=== PATIENT | female | born 1985 | race African-American/Black ===

== ENCOUNTER 2016-11-06 09:10 | Emergency (ER) | payer OTHER ==
[2016-11-06 09:15] VITALS: PULSE 83; RESP 18
--- NOTE | 2016-11-06 09:35 | ED ---
Female Urogenital HPI - General Chief complaint: OB/Uterine Contractions Stated complaint: and bleeding Time Seen by Provider: 11/06/16 09:17 Source: patient, RN notes reviewed Mode of arrival: ambulatory Limitations: no limitations - History of Present Illness Initial comments: Patient is a 31-year-old female presents emergency room for vaginal bleeding. Patient states she is about 8 weeks . Patient's last menstrual period was 09/07/16. Patient states she found out at her doctor's appointment that she was . Patient is . Patient states she woke up this morning with blood in her underwear. Patient states it was a light amount of bright red blood and has gone through one pad so far. Patient states it felt like she was just beginning her period. Patient states she had a small clot that she passed. Patient denies any significant pain or cramping. Patient denies nausea or vomiting. Patient denies fevers or chills. Patient denies headache or dizziness. Patient denies chest pain or shortness of breath. Patient denies pain or burning during urination. Patient states she has a history of Chlamydia and Trichomonas when she was younger that was treated. Patient states she has not had an ultrasound yet for this . Patient states she just saw her PROPAGATOR on Tuesday. Last Menstrual Period: 09/06/16 - Related Data Home Medications Medication Instructions Recorded Confirmed Methyldopa [Aldomet] 250 mg PO BID 02/05/16 02/05/16 Ayt-Tmbx-Uyjkh Acid 1 cap PO DAILY 02/05/16 02/05/16 [-U Capsule] Previous Rx's Medication Instructions Recorded Miconazole 2% Vaginal Cream 1 applicator VAGINAL HS #7 02/05/16 [Monistat 7] cream.appl Allergies Allergy/AdvReac Type Severity Reaction Status Date / Time Latex, Natural Rubber Allergy Itching Verified 02/05/16 09:15 sulfamethoxazole Allergy Racing Verified 02/05/16 09:15 [From Bactrim] Heart/Headache/Sweating trimethoprim [From Bactrim] Allergy Racing Verified 02/05/16 09:15 Heart/Headache/Sweating nitrofurantoin AdvReac Itching Verified 02/05/16 09:15 [From Macrobid] nitrofurantoin AdvReac Itching Verified 02/05/16 09:15 macrocrystalline [From Macrobid] Review of Systems ROS Statement: Those systems with pertinent positive or pertinent negative responses have been documented in the HPI. ROS Other: All systems not noted in ROS Statement are negative. Past Medical History Past Medical History: Hypertension Additional Past Medical History / Comment(s): Obesity History of Any Multi-Drug Resistant Organisms: None Reported Additional Past Surgical History / Comment(s): D&C Past Anesthesia/Blood Transfusion Reactions: No Reported Reaction Past Psychological History: No Psychological Hx Reported Smoking Status: Never smoker Past Alcohol Use History: Occasional Past Drug Use History: None Reported General Exam - General Exam Comments Initial Comments: Sitting on exam bed, no acute distress. Limitations: no limitations General appearance: alert, in no apparent distress Head exam: Present: atraumatic, normocephalic, normal inspection Eye exam: Present: normal appearance ENT exam: Present: normal exam Neck exam: Present: normal inspection Respiratory exam: Present: normal lung sounds bilaterally. Absent: respiratory distress Cardiovascular Exam: Present: regular rate, normal rhythm, normal heart sounds GI/Abdominal exam: Present: soft, normal bowel sounds. Absent: distended, tenderness, guarding, rebound, rigid External exam: Present: normal external exam Speculum exam: Present: vaginal bleeding By manual exam: Present: normal by manual exam Extremities exam: Present: normal inspection Back exam: Present: normal inspection Neurological exam: Present: alert, oriented X3, CN II-XII intact, normal gait Psychiatric exam: Present: normal affect, normal mood Skin exam: Present: warm, dry, intact, normal color. Absent: rash Course Vital Signs 11/06/16 11/06/16 09:12 10:39 Temperature 97.8 F 98.4 F Pulse Rate 83 83 Respiratory 18 18 Rate Blood Pressure 145/102 148/107 O2 Sat by Pulse 97 99 Oximetry Medical Decision Making - Medical Decision Making Patient is a 31-year-old female presents emergency room for evaluation of vaginal bleeding. Patient is . ultrasound: Single live intrauterine gestation is confirmed, meaning crown-rump length is 2.6 cm corresponding to a 9 week 3 day old fetus. Small to moderate-sized subchorionic hemorrhage is felt present. Patient's blood type is O positive. Advised patient to follow- up with PROPAGATOR on Tuesday. Patient states she understands everything that was discussed with her. Return parameters discussed. Case discussed Dr. Hannah. - Lab Data Lab Results 11/06/16 11/06/16 11/06/16 Range/Units 09:37 09:44 09:44 Urine Color Yellow Urine Appearance Cloudy H (Clear) Urine pH 7.0 (5.0-8.0) Ur Specific [place] 1.010 (1.001-1.035) Urine Protein Negative (Negative) Urine Glucose (UA) Negative (Negative) Urine Ketones Negative (Negative) Urine Blood Moderate H (Negative) Urine Nitrite Negative (Negative) Urine Bilirubin Negative (Negative) Urine Urobilinogen <2.0 (<2.0) mg/dL Ur Leukocyte Esterase Negative (Negative) Urine RBC 1 (0-5) /hpf Urine WBC 3 (0-5) /hpf Ur Squamous Epith Cells 4 (0-4) /hpf Urine Bacteria Few H (None) /hpf Urine Mucus Rare H (None) /hpf Urine HCG, Qual Detected (Not Detectd) Blood Type O Positive Blood Type Recheck No - Radiology Data Radiology results: report reviewed, image reviewed Disposition Clinical Impression: Threatened miscarriage Disposition: HOME SELF-CARE Condition: Good Instructions: Threatened Miscarriage (ED) Additional Instructions: Refrain from sexual intercourse or heavy lifting for the next 7-10 days. Take Tylenol as needed for pain. Please follow-up with PROPAGATOR on Tuesday. If any new symptom arises or symptoms worsen, return to ER as soon as possible. Referrals: James Pastor DO [Primary Care Provider] - 1-2 days Time of Disposition: 10:23
[2016-11-06 09:55] LABS: Appearance,Urine Cloudy (Clear); Bacteria,Urine Few /hpf; Bilirubin,Urine Negative (Negative); Glucose,Urine (UA) Negative (Negative); Ketones,Urine Negative (Negative); Leukocyte Esterase,Urine Negative (Negative); Mucus,Urine Rare /hpf; Nitrite,Urine Negative (Negative); Particle Count 5677; Protein,Urine Negative (Negative); RBC,Urine 1 /hpf (0-5); Squamous Epithelial Cell,Urine 4 /hpf (0-4); UA Billing (MACRO vs. MICRO) MICRO; Urobilinogen,Urine <2.0 mg/dL (<2.0); WBC,Urine 3 /hpf (0-5)
--- NOTE | 2016-11-06 10:17 | US ---
EXAMINATION TYPE: US OB <= 14 wk fetus DATE OF EXAM: 11/06/2016 10:05 AM COMPARISON: NONE CLINICAL HISTORY: Pain. Bleeding x 1 day with no pain. Positive beta-hCG test. EXAM PERFORMED: OBTA EXAM MEASUREMENTS: GESTATIONAL AGE / DATING Physician Established: not established Dates by LMP: (8 weeks/5 days) EDC: 06/13/2017 Dates by First Scan: PILOT Dates by Current Scan for: (9 weeks/3 days) EDC: 06/08/2017 MATERNAL ANATOMY Uterus: 11.2 x 9.1 x 7.5 Right Ovary: 2.7 x 2.2 x 1.8 Left Ovary: 2.8 x 4.0 x 3.1 Post CDS / Adnexa: wnl Presence of free fluid: no Presence of corpus luteal cyst: yes, left = 2.7cm Presence of subchorionic bleed: 3.8cm complex fluid collection may represent subchorionic bleed GESTATION / SURVEY CRL: 2.6cm (9 weeks/3 days) MSD: wnl Yolk Sac (normal less than 6mm): 0.4cm Heart Rate: 175 bpm Rhythm: Normal IUP: Viable IUP Date of LMP: 09/06/2016 Beta HcG (if available): not available Single live intrauterine gestation is confirmed as gestational sac, yolk sac, and pole are iden tified. Along inferior aspect there is curvilinear fluid collection measuring 3.8 cm on long axis fel t to reflect small to moderate-sized subchorionic hemorrhage. No free fluid is seen in pelvic cul-de- sac. Both ovaries are seen. Within left ovary there is 2.7 cm peripheral hypoechoic lesion could reflect c orpus luteal cyst. IMPRESSION: Single live intrauterine gestation is confirmed, mean crown-rump length is 2.6 cm corresponding to a 9 week 3 day old fetus. Small to moderate-sized subchorionic hemorrhage is felt present. Consider ult rasound follow-up.
[2016-11-06 10:40] VITALS: BP 148/107; TEMP 98.4
== END 2016-11-06 10:40 | disposition home or self-care (01) ==
LOC: EC 09:10
DX: O20.0 Threatened abortion (principal); Z3A.09 9 weeks gestation of pregnancy; O10.011 Pre-existing essential hypertension complicating pregnancy, first trimester; I10 Essential (primary) hypertension
CPT/HCPCS: 36415; 76801; 81001; 81025; 84702; 86900; 86901; 99284

== ENCOUNTER → 2016-11-08 | Outpatient (CLI) | payer OTHER | END | disposition home or self-care (01) | LOC: LABWHC1 16:35 | PROVIDERS: ATTEND Physician Assistant | DX: O20.0 Threatened abortion (principal) | CPT/HCPCS: 36415; 84702 ==

== ENCOUNTER → 2016-11-24 | Outpatient (CLI) | payer OTHER ==
--- NOTE | 2016-11-24 14:18 | US ---
EXAMINATION TYPE: US OB <=14 wks transvag DATE OF EXAM: 11/24/2016 1:50 PM COMPARISON: 11/06/2016 pelvic ultrasound CLINICAL HISTORY: O16.1 HTN affecting . Patient reports spotting EXAM PERFORMED: Transvaginal (TV) and Transabdominal (TA) EXAM MEASUREMENTS: GESTATIONAL AGE / DATING Physician Established: unknown Dates by LMP: (11 weeks/2 days) EDC: 06/13/2017 Dates by First Scan: (12 weeks/0 days) EDC: 06/08/2017 Dates by Current Scan for: (11 weeks/6 days) EDC: 06/09/2017 MATERNAL ANATOMY Uterus: 13.2 x 8.0 x 11.7 cm Right Ovary: 4.1 x 2.7 x 5.2 cm Left Ovary: not visualized Post CDS / Adnexa: Presence of free fluid: no Presence of corpus luteal cyst: no Presence of subchorionic bleed: small (1.5 x 0.9 cm) inferior bleed GESTATION / SURVEY CRL: 5.2 cm (11 weeks/6 days) Heart Rate: 171 bpm Rhythm: Normal IUP: Viable IUP Date of LMP: 09/06/2016 Single, viable IUP of 11 weeks 6 days with an EDC of 06/09/2017. Small inferior subchrionic bleed Single live intrauterine gestation is redemonstrated as gestational sac and pole are identified currently. No yolk sac is seen. Small inferior subchorionic hemorrhage is redemonstrated though dimi nished in size from prior. No free fluid is seen in pelvic cul-de-sac. Right ovary is seen. Left ovary is not clearly identified. No suspicious extraovarian adnexal masses are present. IMPRESSION: Single live intrauterine gestation is redemonstrated, mean crown-rump length is 5.2 cm corresponding to 11 weeks 6 day old fetus. Appropriate growth progression noted. Interval improvement in subchorion ic hemorrhage.
== END | disposition home or self-care (01) ==
LOC: RADUSWWP 13:04
PROVIDERS: ATTEND Obstetrics & Gynecology
DX: O20.9 Hemorrhage in early pregnancy, unspecified (principal); O16.1 Unspecified maternal hypertension, first trimester; Z3A.11 11 weeks gestation of pregnancy
CPT/HCPCS: 76801; 76817

== ENCOUNTER → 2017-03-24 | Outpatient (CLI) | payer OTHER ==
--- NOTE | 2017-03-24 16:59 | US ---
EXAMINATION TYPE: US OB >= 14 wk fetus DATE OF EXAM: 03/24/2017 COMPARISON: US CLINICAL HISTORY: O16.2 Maternal hypertension, second trimester HTN, Growth only TECHNIQUE: Transabdominal (TA) GESTATIONAL AGE / DATING Physician Established: (28 weeks/3 days) EDC: 06/13/2017 Dates by LMP: (28weeks/3 days) EDC: 06/13/2017 Dates by First Scan: (29weeks/1 days) EDC: 06/08/2017 Dates by Current Scan: (28weeks/1 days) EDC: 06/15/2017 SURVEY IUP: Single PLACENTA: Anterior PREVIA: No Previa SHIMON: 13.4 Normal CERVICAL LENGTH (transabdominal: norm > 3.0cm): 3.6 cm BIOMETRY PRESENTATION: Breech BPD: 7.3 cm 29 weeks / 1 days HC: 27.0 cm 29 weeks / 3 days AC: 23.4 cm 27 weeks / 5 days FL: 5.3 cm 28 weeks / 0 days ESTIMATED WEIGHT IN GRAMS: 1170 grams ESTIMATED WEIGHT IN LBS/OZ: 2 lbs. 9 oz. WEIGHT PERCENTAGE BASED ON ESTABLISHED DATES: 25% HC/AC: 1.16 Normal FL/AC: 23 Normal HEART RATE: 137 bpm RHYTHM: Normal Single, viable IUP, Growth parameters in 25th percentile IMPRESSION: There is satisfactory growth compared to 11/06/2016. I see no complicating process.
== END ==
LOC: RADUSWWP 16:18
PROVIDERS: ATTEND Obstetrics & Gynecology
DX: O16.2 Unspecified maternal hypertension, second trimester (principal); Z3A.29 29 weeks gestation of pregnancy
CPT/HCPCS: 76805

== ENCOUNTER → 2017-09-28 | Outpatient (CLI) | payer OTHER ==
[2017-09-28 18:34] LABS: Basophils % (A) 0 %; Eosinophils # (A) 0.1 k/uL (0-0.7); Eosinophils % (A) 1 %; HCT 36.8 % (34.0-46.0); HGB 12.1 gm/dL (11.4-16.0); Lymphocytes # (A) 2.3 k/uL (1.0-4.8); Lymphocytes % (A) 33 %; MCHC 32.8 g/dL (31.0-37.0); MCV 85.1 fL (80.0-100.0); Mean Platelet Volume 7.3; Monocytes # (A) 0.4 k/uL (0-1.0); Monocytes % (A) 6 %; Neutrophils # (A) 3.9 k/uL (1.3-7.7); Neutrophils % (A) 58 %; Platelet Count 289 k/uL (150-450); RBC 4.32 m/uL (3.80-5.40); RDW 14.7 % (11.5-15.5); WBC 6.8 k/uL (3.8-10.6)
== END | disposition home or self-care (01) ==
LOC: LABWHC1 16:50
PROVIDERS: ATTEND Obstetrics & Gynecology
DX: Z01.812 Encounter for preprocedural laboratory examination (principal)
CPT/HCPCS: 36415; 85025

== ENCOUNTER 2017-10-03 06:07 | Day surgery (SDC) | payer OTHER ==
[2017-09-28 11:49] VITALS: BMI 45.6
--- NOTE | 2017-09-28 18:17 | P.HPOB ---
History of Present Illness H&P Date: 09/28/17 Chief Complaint: Family planning Patient is a 32-year-old female who has completed her family planning and desires permanent sterilization. Risks/benefits/alternatives to this procedure were discussed with the patient in detail and all questions were answered for her prior to proceeding to the operative room. It is noted that she has been taking Depo-Provera and has failed Mirena and On. She is therefore most interested in permanent sterilization and is scheduled for a laparoscopic tubal occlusion with Filshie clips. She is aware she is high risk for cup location due to her high BMI and the risks do include but are not limited to damage to bladder, bowel, vascular injuries, nerve damage , bleeding, infection, even potentially . There is a coated failure rate of approximately 1%. On physical exam this is a morbidly obese female whose HEENT is unremarkable. Her heart is regular, lungs are clear, extremities are without pain. Osteopathic exams unremarkable. Pelvic exam is otherwise unremarkable. Assessment family planning. Plan left scopic tubal occlusion with Filshie clips Past Medical History Past Medical History: GERD/Reflux, Hypertension Additional Past Medical History / Comment(s): Obesity History of Any Multi-Drug Resistant Organisms: None Reported Additional Past Surgical History / Comment(s): D&C Past Anesthesia/Blood Transfusion Reactions: No Reported Reaction Past Psychological History: Anxiety Smoking Status: Former smoker Past Alcohol Use History: Occasional Additional Past Alcohol Use History / Comment(s): Smoked for 2 yrs, quit in 2006. Past Drug Use History: None Reported - Past Family History Mother Family Medical History: No Reported History Medications and Allergies Home Medications Medication Instructions Recorded Confirmed Type Methyldopa [Aldomet] 250 mg PO BID 02/05/16 09/28/17 History Zgl-Jscd-Otjpn Acid 1 cap PO DAILY 02/05/16 09/28/17 History [-U Capsule] Fluticasone Propionate [Flonase 2 spray EA NOSTRIL DAILY PRN 09/28/17 09/28/17 History Allergy Relief] Allergies Allergy/AdvReac Type Severity Reaction Status Date / Time Latex, Natural Rubber Allergy Itching Verified 09/28/17 11:34 sulfamethoxazole Allergy Racing Verified 09/28/17 11:34 [From Bactrim] Heart/Headache/Sweating trimethoprim [From Bactrim] Allergy Racing Verified 09/28/17 11:34 Heart/Headache/Sweating nitrofurantoin AdvReac Itching Verified 09/28/17 11:34 [From Macrobid] nitrofurantoin AdvReac Itching Verified 09/28/17 11:34 macrocrystalline [From Macrobid] Exam Osteopathic Statement: *. No significant issues noted on an osteopathic structural exam other than those noted in the History and Physical/Consult. - Vital Signs Vital signs: Intake and Output 09/28/17 09/28/17 09/28/17 06:59 14:59 22:59 Other: Weight 120.656 kg
[~2017-10-03 06:07] MED LIST: DEXAMETHASONE SOD PHOSPHATE 10 MG/ML 1 ML VIAL IV ONE; HYDROmorphone 0.5 MG/0.5 ML SYRINGE IVP PRN; MORPHINE SULFATE 4 MG/ML SYRINGE IV PRN; ONDANSETRON 4 MG/2 ML VIAL IVP ONE; ONDANSETRON 4 MG/2 ML VIAL IVP PRN; Pre Op ABX Message 1 EACH MISC MISCELLANE ONE
[2017-10-03] MEDS: LACTATED RINGERS 1,000 ML IV SCH ×2 (06:47→07:49)
[2017-10-03] MEDS ORDERED: BUPIVACAINE (PF) 0.25% 30 ML VIAL SQ ONE ×2 (07:31→08:15)
[2017-10-03] MEDS ORDERED: KETOROLAC 30 MG/ML 1 ML VIAL ONE (07:50)
[2017-10-03] MEDS ORDERED: fentaNYL (PF) 50 MCG/ML 2 ML AMP ONE (07:50)
[2017-10-03] MEDS ORDERED: NEOSTIGMINE 1 MG/ML 10 ML VIAL ONE (07:50)
[2017-10-03] MEDS ORDERED: GLYCOPYRROLATE 0.2 MG/ML 2 ML VIAL ONE (07:50)
[2017-10-03] MEDS ORDERED: MORPHINE SULFATE 10 MG/ML SYRINGE ONE (07:50)
[2017-10-03] MEDS ORDERED: PROPOFOL 10 MG/ML 20 ML VIAL IV ONE (07:50)
[2017-10-03] MEDS ORDERED: LABETALOL 5 MG/ML VIAL MDV ONE (07:50)
[2017-10-03] MEDS ORDERED: ROCURONIUM BROMIDE 10 MG/ML 10 ML VIAL IV ONE (07:50)
[2017-10-03] MEDS ORDERED: MIDAZOLAM 2 MG/2 ML VIAL ONE (07:50)
--- NOTE | 2017-10-03 08:29 | P.OP ---
Date of Procedure: 10/03/17 Preoperative Diagnosis: Family planning Postoperative Diagnosis: same Procedure(s) Performed: Laparoscopic tubal occlusion with Filshie clips Anesthesia: KELLY Surgeon: Chris Braxton Estimated Blood Loss (ml): 5 IV fluids (ml): 650 Urine output (ml): 100 Pathology: none sent Condition: stable Disposition: same day Operative Findings: Normal female anatomy Description of Procedure: I can slow down feeling like patient was taken to the operative suite where a general anesthetic was found be adequate. She was prepped and draped in sterile fashion and placed in dorsal lithotomy position. Initially a speculum was inserted into the vagina and the anterior lip of the cervix was identified and grasped with an Allis clamp. Uterus was then sounded to 10 cm and a uterine manipulator was inserted without difficulty. Once this was accomplished speculum and Allis clamp were removed and a latex free catheter was placed and drained of 100 mL of urine. Gloves were then changed and attention was turned to the abdominal portion of the procedure were 2 mL of quarter percent Marcaine was injected periumbilically and through this injected anesthetic a 5 mm skin incision was made. Through this incision under direct visualization with an optical trocar and sleeve camera was inserted. Once peritoneal placement was assured gas was left fully insufflate the abdomen and patient was then placed in steep Trendelenburg position. Once this was accomplished uterus was elevated and observations pelvis were noted. A second 8 mm skin incision was then made 3 cm above the pubic symphysis in the midline and through this incision an 8 mm trocar and sleeve were Inserted under direct visualization. Fallopian tubes were then identified first the right tube than the left tube had a Filshie clip placed 2 cm from uterine cornu. With no bleeding noted from the mesosalpinx sure minutes were removed and gas was allowed to expel from the abdomen. 5 deep breaths were provided during this process. Once this was completed ports removed and 4-0 Vicryl was used to close the incisions subcuticularly. The remaining 8 mL of quarter percent Marcaine was then injected around these incisions and instruments were removed from the vagina. Sponge, lap, needle counts were all correct 2. Patient was then taken to the recovery room in stable and satisfactory condition Plan - Discharge Summary New Discharge Prescriptions: New Ibuprofen [Motrin] 600 mg PO Q6HR PRN #30 tab PRN Reason: Pain No Action Methyldopa [Aldomet] 250 mg PO BID Nmk-Dopj-Shoof Acid [-U Capsule] 1 cap PO DAILY Fluticasone Propionate [Flonase Allergy Relief] 2 spray EA NOSTRIL DAILY PRN PRN Reason: Allergic Reaction Discharge Medication List Methyldopa [Aldomet] 250 mg PO BID 02/05/16 [History] Uir-Ocgj-Cxzkw Acid [-U Capsule] 1 cap PO DAILY 02/05/16 [ History] Fluticasone Propionate [Flonase Allergy Relief] 2 spray EA NOSTRIL DAILY PRN [History] Ibuprofen [Motrin] 600 mg PO Q6HR PRN #30 tab 10/03/17 [Rx] Follow up Appointment(s)/Referral(s): Chris Braxton DO [Doctor of Osteopathic Medicine] - 1 Week Activity/Diet/Wound Care/Special Instructions: No heavy lifting, limit stairs and driving, and pelvic rest. If any high temperatures, heavy bleeding, or severe pain call my office Discharge Disposition: HOME SELF-CARE
[2017-10-03] MEDS: hydrALAZINE HCL 20 MG/ML 1 ML VIAL IVP ONE ×4 (08:45→09:15)
[2017-10-03] MEDS: fentaNYL (PF) 50 MCG/ML 2 ML AMP IVP ONE ×2 (08:47→08:56)
[2017-10-03 09:04] VITALS: TEMP 97.4
[2017-10-03] MEDS: LACTATED RINGERS 1,000 ML IV ONE (09:10)
[2017-10-03] MEDS ORDERED: LACTATED RINGERS 1,000 ML IV ONE (09:10)
[2017-10-03] MEDS ORDERED: LABETALOL SYRINGE 5 MG/ML IVP ONE (09:25)
[2017-10-03] MEDS: MEPERIDINE 50 MG/ML SYRINGE IVP ONE ×2 (09:40→10:25)
[2017-10-03 10:50] VITALS: RESP 18
[2017-10-03 13:32] VITALS: BP 138/74; PULSE 81
== END 2017-10-03 13:59 | disposition home or self-care (01) ==
LOC: OR 06:07
PROVIDERS: ATTEND Obstetrics & Gynecology
DX: Z30.2 Encounter for sterilization (principal); K21.9 Gastro-esophageal reflux disease without esophagitis; I10 Essential (primary) hypertension; E66.9 Obesity, unspecified; Z68.42 Body mass index [BMI] 45.0-49.9, adult; Z87.891 Personal history of nicotine dependence; Z79.899 Other long term (current) drug therapy; Z88.2 Allergy status to sulfonamides; Z88.1 Allergy status to other antibiotic agents; Z91.040 Latex allergy status
CPT/HCPCS: 58671; J2250; J0360; J1100; J2710; J2175; J2270; J2405; J3010; J1885; J2704

== ENCOUNTER 2017-10-26 16:28 | Emergency (ER) | payer OTHER ==
--- NOTE | 2017-10-26 18:08 | ED ---
General Adult HPI - General Chief complaint: Recheck/Abnormal Lab/Rx Stated complaint: HYPERTENSION Time Seen by Provider: 10/26/17 18:00 Source: patient, RN notes reviewed Mode of arrival: ambulatory Limitations: no limitations - History of Present Illness Initial comments: Patient 32-year-old female presenting to the emergency room today with a chief complaint of elevated blood pressure. She states that she went to her dentist today for routine cleaning. She states her blood pressure was checked she was told it was elevated as compared to the emergency room. Patient does admit that she does have a history of hypertension and has been taking her medication. She states she took this morning. Patient doesn't that she's been dieting. She states she's lost 10 pounds over the last week. Patient states she checked her blood pressure at home yesterday was 107/77 last night. She states that blood pressure at triage was the highest that she has ever seen it. She states that she feels a little headache at this time. She states this started after the dentist told that her blood pressure was elevated was advised coming here to the emergency room. She states she was feeling fine prior. She denies any other complaints or symptoms. - Related Data Home Medications Medication Instructions Recorded Confirmed Methyldopa [Aldomet] 250 mg PO BID 02/05/16 10/03/17 Mpt-Puhe-Yhint Acid 1 cap PO DAILY 02/05/16 09/28/17 [-U Capsule] Fluticasone Propionate [Flonase 2 spray EA NOSTRIL DAILY PRN 09/28/17 10/03/17 Allergy Relief] Previous Rx's Medication Instructions Recorded Ibuprofen [Motrin] 600 mg PO Q6HR PRN #30 tab 10/03/17 Allergies Allergy/AdvReac Type Severity Reaction Status Date / Time Latex, Natural Rubber Allergy Itching Verified 10/26/17 17:12 sulfamethoxazole Allergy Racing Verified 10/26/17 17:12 [From Bactrim] Heart/Headache/Sweating trimethoprim [From Bactrim] Allergy Racing Verified 10/26/17 17:12 Heart/Headache/Sweating nitrofurantoin AdvReac Itching Verified 10/26/17 17:12 [From Macrobid] nitrofurantoin AdvReac Itching Verified 10/26/17 17:12 macrocrystalline [From Macrobid] Review of Systems ROS Statement: Those systems with pertinent positive or pertinent negative responses have been documented in the HPI. ROS Other: All systems not noted in ROS Statement are negative. Past Medical History Past Medical History: GERD/Reflux, Hypertension Additional Past Medical History / Comment(s): Obesity History of Any Multi-Drug Resistant Organisms: None Reported Additional Past Surgical History / Comment(s): D&C Past Anesthesia/Blood Transfusion Reactions: No Reported Reaction Past Psychological History: Anxiety Smoking Status: Former smoker Past Alcohol Use History: Occasional Past Drug Use History: None Reported - Past Family History Mother Family Medical History: No Reported History General Exam - General Exam Comments Initial Comments: General: The patient is awake and alert, in no distress, and does not appear acutely ill. Eye: Pupils are equal, round and reactive to light, extra-ocular movements are intact. No nystagmus. There is normal conjunctiva bilaterally. No signs of icterus. Ears, nose, mouth and throat: There are moist mucous membranes and no oral lesions. Neck: The neck is supple, there is no tenderness or JVD. Cardiovascular: There is a regular rate and rhythm. No murmur, rub or gallop is appreciated. Respiratory: Lungs are clear to auscultation, respirations are non-labored, breath sounds are equal. No wheezes, stridor, rales, or rhonchi. Musculoskeletal: Normal ROM, no tenderness. Strength 5/5. Sensation intact. Pulses equal bilaterally 2+. Neurological: A&O x 3. CN II-XII intact, There are no obvious motor or sensory deficits. Coordination appears grossly intact. Speech is normal. Skin: Skin is warm and dry and no rashes or lesions are noted. Psychiatric: Cooperative, appropriate mood & affect, normal judgment. Limitations: no limitations Course Vital Signs 10/26/17 10/26/17 17:10 18:41 Temperature 98.9 F Pulse Rate 104 H Respiratory 20 Rate Blood Pressure 192/116 148/106 O2 Sat by Pulse 98 Oximetry Medical Decision Making - Medical Decision Making Patient repeat blood pressure checked here in the emergency room 148/106. Patient asymptomatic. She denies any complaints. Patient states she had no symptoms until she was at the dentist office and they told that her blood pressure was elevated and that she should come to the ER. She states she is feeling fine at this time. Case discussed with attending physician Dr. Calderon. Patient does have an appointment with her family doctor tomorrow. She has been taking her blood pressure medication. Has been keeping a log of the home. She states last night her blood pressure was 107/77. Advised patient to check blood pressure tonight and tomorrow before her appointment. Advised return to emergency room if symptoms increase worsen or for any other concerns. Disposition Clinical Impression: HTN (hypertension) Disposition: HOME SELF-CARE Condition: Good Instructions: Hypertension (ED) Additional Instructions: Please use medication as discussed. Please follow-up with family doctor in the next 2 days of symptoms have not improved. Please return to emergency room if the symptoms increase or worsen or for any other concerns. Is patient prescribed a controlled substance at discharge?: No Referrals: Jeannette Cam MD [Primary Care Provider] - 1-2 days Time of Disposition: 18:55
[2017-10-26 19:25] VITALS: BP 150/101; PULSE 81; RESP 18; TEMP 98.4
== END 2017-10-26 19:23 | disposition home or self-care (01) ==
LOC: EC 16:28
DX: I10 Essential (primary) hypertension (principal); E66.9 Obesity, unspecified; Z68.41 Body mass index [BMI] 40.0-44.9, adult; Z87.891 Personal history of nicotine dependence; Z79.899 Other long term (current) drug therapy; Z91.040 Latex allergy status; Z88.2 Allergy status to sulfonamides; Z88.1 Allergy status to other antibiotic agents
CPT/HCPCS: 99283

== ENCOUNTER → 2018-03-01 | Outpatient (CLI) | payer OTHER ==
--- NOTE | 2018-03-02 08:13 | CT ---
EXAMINATION TYPE: CT abdomen pelvis w con DATE OF EXAM: 03/01/2018 HISTORY: Chronic constipation and pelvic pain per patient and order. CT DLP: 1404mGycm Automated Exposure Control for Dose Reduction was Utilized. CONTRAST: CT scan of the abdomen and pelvis is performed with IV Contrast, patient injected with 100 mL of Isov ue 300. COMPARISON: Complete abdominal ultrasound July 05, 2012 FINDINGS: LUNG BASES: No significant abnormality is appreciated. LIVER/GB: No significant abnormality is appreciated. PANCREAS: No significant abnormality is seen. SPLEEN: No significant abnormality is seen. ADRENALS: No significant abnormality is seen. KIDNEYS: No significant abnormality is seen. BOWEL: The oral contrast reaches level of cecum. There is no suspicious small or large bowel dilatati on there is slight redundancy of the sigmoid colon.. UTERUS/ADNEXA: Retroverted slightly prominent heterogeneous uterus is seen on sagittal images. Tubal ligation clips along the periphery are noted. Both ovaries are present and normal in size. Trace free fluid in pelvic cul-de-sac axial image 68 is noted. LYMPH NODES: No greater than 1cm abdominal or pelvic lymph nodes are appreciated. OSSEOUS STRUCTURES: No significant abnormality is seen. OTHER: No significant additional abnormality is seen. IMPRESSION: No bowel obstruction is seen. No significant finding is seen to account for patient's cli nical symptoms. Nonspecific trace free fluid in pelvic cul-de-sac otherwise unremarkable study.
== END | disposition home or self-care (01) ==
LOC: RADCTMAIN 17:51
PROVIDERS: ATTEND Family Medicine
DX: R10.9 Unspecified abdominal pain (principal); K59.09 Other constipation
CPT/HCPCS: 74177; Q9967

== ENCOUNTER → 2020-07-31 | Outpatient (CLI) | payer OTHER ==
--- NOTE | 2020-07-31 10:27 | US ---
EXAMINATION TYPE: US pelvic complete DATE OF EXAM: 07/31/2020 COMPARISON: NONE CLINICAL HISTORY: D72.819 LEUKOPENIA,R10.2 PELVIC PAIN,R10.9 ABD PAIN. TECHNIQUE: Transvaginal (TV). Date of LMP: 07-22-20 EXAM MEASUREMENTS: Uterus: 8.3 x 4.6 x 5.3cm Endometrial Stripe: 1.0 cm Right Ovary: 2.8 x 2.3 x 2.6 cm Left Ovary: 3.0 x 1.8 x 1.6 cm 1. Uterus: Anteverted wnl 2. Endometrium: wnl 3. Right Ovary: wnl 4. Left Ovary: wnl Spectral, color and waveform doppler imaging shows good arterial and venous flow within the ovaries ; there is no evidence for ovarian torsion. 5. Bilateral Adnexa: prominent vascularity in left adnexa, dilated vessels, small amount of free flui d in left adnexa . Follicles are present bilaterally. A 1.9 x 1.3 cm right ovarian cyst is present. 6. Posterior cul-de-sac: wnl IMPRESSION: 1. Small amount of free fluid left adnexal region. 2. Right ovarian cyst
--- NOTE | 2020-07-31 10:30 | US ---
EXAMINATION TYPE: US abdomen complete DATE OF EXAM: 07/31/2020 COMPARISON: NONE CLINICAL HISTORY: D72.819 LEUKOPENIA,R10.2 PELVIC PAIN,R10.9 ABD PAIN. EXAM MEASUREMENTS: Liver Length: 12.0 cm Gallbladder Wall: 0.1 cm CBD: 0.3 cm Spleen: 11.1 cm Right Kidney: 10.3 x 4.1 x 5.5 cm Left Kidney: 11.6 x 4.7 x 4.3 cm Pancreas: Head obscured by overlying bowel gas Liver: wnl Gallbladder: probable polyp measuring 0.5 x 0.4 x 0.4cm Evidence for sonographic Garsia's sign: no CBD: wnl Spleen: wnl Right Kidney: poor corticomedullary differentiation Left Kidney: poor corticomedullary differentiation Upper IVC: wnl Abd Aorta: wnl IMPRESSION: 1. Gallbladder polyp. Gallstones considered less likely. 2. Poor differentiation of the cortical medullary junction
== END | disposition home or self-care (01) ==
LOC: RADUSWWP 08:37
PROVIDERS: ATTEND Family Medicine
DX: Z01.419 Encounter for gynecological examination (general) (routine) without abnormal findings (principal); N83.201 Unspecified ovarian cyst, right side; K82.4 Cholesterolosis of gallbladder
CPT/HCPCS: 76700; 76856

== ENCOUNTER 2020-08-14 05:14 | Emergency (ER) | payer OTHER ==
[2020-08-14 05:23] VITALS: RESP 18; TEMP 98
[2020-08-14] MEDS ORDERED: SODIUM CHLORIDE 0.9% 1,000 ML IV STA (05:27)
--- NOTE | 2020-08-14 05:28 | ED ---
Abdominal Pain HPI - General Chief Complaint: Abdominal Pain Stated Complaint: ABD pain Time Seen by Provider: 08/14/20 05:16 Source: patient, RN notes reviewed, old records reviewed Mode of arrival: ambulatory Limitations: no limitations - History of Present Illness Initial Comments: This is a 35-year-old female DF for evaluation patient presents today for evaluation regarding abdominal pain diffuse and generalized abdominal pain has been episodic with patient she has history of constipation. She has had a tubal ligation denies chance of occasional nausea no vomiting no fevers no change in bowel habits. Patient has had ultrasound as an outpatient with no significant findings. MD Complaint: abdominal pain -: week(s) Location: diffuse, epigastric, suprapubic Radiation: epigastric, suprapubic Migration to: no migration Quality: aching Consistency: constant Improves With: nothing Worsens With: nothing Associated Symptoms: nausea - Related Data Home Medications Medication Instructions Recorded Confirmed Methyldopa [Aldomet] 250 mg PO BID 02/05/16 10/03/17 [id number] Acid 1 cap PO DAILY 02/05/16 09/28/17 [-U Capsule] Fluticasone Propionate [Flonase 2 spray EA NOSTRIL DAILY PRN 09/28/17 10/03/17 Allergy Relief] Previous Rx's Medication Instructions Recorded Ibuprofen [Motrin] 600 mg PO Q6HR PRN #30 tab 10/03/17 Allergies Allergy/AdvReac Type Severity Reaction Status Date / Time Latex, Natural Rubber Allergy Itching Verified 08/14/20 05:23 sulfamethoxazole Allergy Racing Verified 08/14/20 05:23 [From Bactrim] Heart/Headache/Sweating trimethoprim [From Bactrim] Allergy Racing Verified 08/14/20 05:23 Heart/Headache/Sweating nitrofurantoin AdvReac Itching Verified 08/14/20 05:23 [From Macrobid] nitrofurantoin AdvReac Itching Verified 08/14/20 05:23 macrocrystalline [From Macrobid] Review of Systems ROS Statement: Those systems with pertinent positive or pertinent negative responses have been documented in the HPI. ROS Other: All systems not noted in ROS Statement are negative. Past Medical History Past Medical History: GERD/Reflux, Hypertension Additional Past Medical History / Comment(s): Obesity History of Any Multi-Drug Resistant Organisms: None Reported Additional Past Surgical History / Comment(s): D&C Past Anesthesia/Blood Transfusion Reactions: No Reported Reaction Past Psychological History: Anxiety Smoking Status: Never smoker Past Alcohol Use History: Occasional Past Drug Use History: None Reported - Past Family History Mother Family Medical History: No Reported History General Exam Limitations: no limitations General appearance: alert, in no apparent distress Head exam: Present: atraumatic, normocephalic, normal inspection Eye exam: Present: normal appearance, PERRL, EOMI. Absent: scleral icterus, conjunctival injection, periorbital swelling ENT exam: Present: normal exam, mucous membranes moist Neck exam: Present: normal inspection. Absent: tenderness, meningismus, lymphadenopathy Respiratory exam: Present: normal lung sounds bilaterally. Absent: respiratory distress, wheezes, rales, rhonchi, stridor Cardiovascular Exam: Present: regular rate, normal rhythm, normal heart sounds. Absent: systolic murmur, diastolic murmur, rubs, gallop, clicks GI/Abdominal exam: Present: soft, normal bowel sounds. Absent: distended, tenderness, guarding, rebound, rigid Extremities exam: Present: normal inspection, full ROM, normal capillary refill. Absent: tenderness, pedal edema, joint swelling, calf tenderness Back exam: Present: normal inspection Neurological exam: Present: alert, oriented X3, CN II-XII intact Psychiatric exam: Present: normal affect, normal mood Skin exam: Present: warm, dry, intact, normal color. Absent: rash Course Vital Signs 08/14/20 08/14/20 05:19 07:51 Temperature 98 F Pulse Rate 90 84 Respiratory 18 18 Rate Blood Pressure 122/80 106/82 O2 Sat by Pulse 98 98 Oximetry - Reevaluation(s) Reevaluation #1: 08/14/20 07:01 Medical record is reviewed Reevaluation #2: 08/14/20 07:01 Patient has no findings here in the ER Medical Decision Making - Medical Decision Making 35 female DF for evaluation of abdominal pain. Patient presenting with abdominal pain here today, no significant findings here in the emergency department. Patient does have pain control. Patient can be discharged home - Lab Data Result diagrams: 08/14/20 05:44 08/14/20 05:44 Lab Results 08/14/20 08/14/20 08/14/20 Range/Units 05:44 05:44 05:44 WBC 11.1 H (3.8-10.6) k/uL RBC 4.78 (3.80-5.40) m/uL Hgb 14.9 (11.4-16.0) gm/dL Hct 44.8 (34.0-46.0) % MCV 93.6 (80.0-100.0) fL MCH 31.2 (25.0-35.0) pg MCHC 33.3 (31.0-37.0) g/dL RDW 15.5 (11.5-15.5) % Plt Count 241 (150-450) k/uL MPV 7.3 Neutrophils % 86 % Lymphocytes % 8 % Monocytes % 3 % Eosinophils % 1 % Basophils % 0 % Neutrophils # 9.6 H (1.3-7.7) k/uL Lymphocytes # 0.9 L (1.0-4.8) k/uL Monocytes # 0.4 (0-1.0) k/uL Eosinophils # 0.1 (0-0.7) k/uL Basophils # 0.0 (0-0.2) k/uL Hypochromasia Moderate Poikilocytosis Moderate Sodium (137-145) mmol/L Potassium (3.5-5.1) mmol/L Chloride (98-107) mmol/L Carbon Dioxide (22-30) mmol/L Anion Gap mmol/L BUN (7-17) mg/dL Creatinine (0.52-1.04) mg/dL Est GFR (CKD-EPI)AfAm (>60 ml/min/1.73 sqM) Est GFR (CKD-EPI)NonAf (>60 ml/min/1.73 sqM) Glucose (74-99) mg/dL Plasma Lactic Acid Venkat (0.7-2.0) mmol/L Calcium (8.4-10.2) mg/dL Phosphorus (2.5-4.5) mg/dL Magnesium (1.6-2.3) mg/dL Total Bilirubin (0.2-1.3) mg/dL AST (14-36) U/L ALT (4-34) U/L Alkaline Phosphatase (38-126) U/L Total Protein (6.3-8.2) g/dL Albumin (3.5-5.0) g/dL Amylase (30-110) U/L Lipase (23-300) U/L Urine Color Yellow Urine Appearance Clear (Clear) Urine pH 7.0 (5.0-8.0) Ur Specific [place] 1.016 (1.001-1.035) Urine Protein Negative (Negative) Urine Glucose (UA) Negative (Negative) Urine Ketones Negative (Negative) Urine Blood Negative (Negative) Urine Nitrite Negative (Negative) Urine Bilirubin Negative (Negative) Urine Urobilinogen <2.0 (<2.0) mg/dL Ur Leukocyte Esterase Trace H (Negative) Urine RBC 1 (0-5) /hpf Urine WBC 1 (0-5) /hpf Ur Squamous Epith Cells 2 (0-4) /hpf Urine Bacteria Occasional H (None) /hpf Urine Mucus Rare H (None) /hpf Urine HCG, Qual Not Detected (Not Detectd) 08/14/20 08/14/20 Range/Units 05:44 05:44 WBC (3.8-10.6) k/uL RBC (3.80-5.40) m/uL Hgb (11.4-16.0) gm/dL Hct (34.0-46.0) % MCV (80.0-100.0) fL MCH (25.0-35.0) pg MCHC (31.0-37.0) g/dL RDW (11.5-15.5) % Plt Count (150-450) k/uL MPV Neutrophils % % Lymphocytes % % Monocytes % % Eosinophils % % Basophils % % Neutrophils # (1.3-7.7) k/uL Lymphocytes # (1.0-4.8) k/uL Monocytes # (0-1.0) k/uL Eosinophils # (0-0.7) k/uL Basophils # (0-0.2) k/uL Hypochromasia Poikilocytosis Sodium 138 (137-145) mmol/L Potassium 4.0 (3.5-5.1) mmol/L Chloride 104 (98-107) mmol/L Carbon Dioxide 25 (22-30) mmol/L Anion Gap 9 mmol/L BUN 18 H (7-17) mg/dL Creatinine 0.70 (0.52-1.04) mg/dL Est GFR (CKD-EPI)AfAm >90 (>60 ml/min/1.73 sqM) Est GFR (CKD-EPI)NonAf >90 (>60 ml/min/1.73 sqM) Glucose 111 H (74-99) mg/dL Plasma Lactic Acid Venkat 1.1 (0.7-2.0) mmol/L Calcium 9.5 (8.4-10.2) mg/dL Phosphorus 4.4 (2.5-4.5) mg/dL Magnesium 2.0 (1.6-2.3) mg/dL Total Bilirubin 0.8 (0.2-1.3) mg/dL AST 44 H (14-36) U/L ALT 61 H (4-34) U/L Alkaline Phosphatase 36 L (38-126) U/L Total Protein 8.5 H (6.3-8.2) g/dL Albumin 4.7 (3.5-5.0) g/dL Amylase 120 H (30-110) U/L Lipase 47 (23-300) U/L Urine Color Urine Appearance (Clear) Urine pH (5.0-8.0) Ur Specific [place] (1.001-1.035) Urine Protein (Negative) Urine Glucose (UA) (Negative) Urine Ketones (Negative) Urine Blood (Negative) Urine Nitrite (Negative) Urine Bilirubin (Negative) Urine Urobilinogen (<2.0) mg/dL Ur Leukocyte Esterase (Negative) Urine RBC (0-5) /hpf Urine WBC (0-5) /hpf Ur Squamous Epith Cells (0-4) /hpf Urine Bacteria (None) /hpf Urine Mucus (None) /hpf Urine HCG, Qual (Not Detectd) - Radiology Data Radiology results: report reviewed (CT abdomen and pelvis shows likely gastroenteritis, patient is able to eat and drink and having bowel movement currently will be discharged home return if symptoms worsen), image reviewed Disposition Clinical Impression: Abdominal pain, Abdominal colic Disposition: HOME SELF-CARE Condition: Good Instructions (If sedation given, give patient instructions): Abdominal Pain (ED) Is patient prescribed a controlled substance at d/c from ED?: No Referrals: Jeannette Cam MD [Primary Care Provider] - 1-2 days
[2020-08-14 05:57] LABS: Basophils % (A) 0 %; Eosinophils # (A) 0.1 k/uL (0-0.7); Eosinophils % (A) 1 %; HCT 44.8 % (34.0-46.0); HGB 14.9 gm/dL (11.4-16.0); Hypochromasia Moderate; Lymphocytes # (A) 0.9 k/uL (1.0-4.8); Lymphocytes % (A) 8 %; MCH 31.2 pg (25.0-35.0); MCHC 33.3 g/dL (31.0-37.0); MCV 93.6 fL (80.0-100.0); Mean Platelet Volume 7.3; Monocytes # (A) 0.4 k/uL (0-1.0); Monocytes % (A) 3 %; Neutrophils # (A) 9.6 k/uL (1.3-7.7); Neutrophils % (A) 86 %; Platelet Count 241 k/uL (150-450); Poikilocytosis Moderate; RBC 4.78 m/uL (3.80-5.40); RDW 15.5 % (11.5-15.5); WBC 11.1 k/uL (3.8-10.6)
[2020-08-14 05:59] LABS: Appearance,Urine Clear (Clear); Bacteria,Urine Occasional /hpf; Bilirubin,Urine Negative (Negative); Blood,Urine Negative (Negative); Color,Urine Yellow; Glucose,Urine (UA) Negative (Negative); Ketones,Urine Negative (Negative); Leukocyte Esterase,Urine Trace (Negative); Mucus,Urine Rare /hpf; Nitrite,Urine Negative (Negative); Protein,Urine Negative (Negative); RBC,Urine 1 /hpf (0-5); Specific Gravity,Urine 1.016 (1.001-1.035); Squamous Epithelial Cell,Urine 2 /hpf (0-4); Urobilinogen,Urine <2.0 mg/dL (<2.0); WBC,Urine 1 /hpf (0-5)
[2020-08-14 06:11] LABS: ALT 61 U/L (4-34); AST 44 U/L (14-36); African American GFR (CKD) >90 (>60 ml/min/1.73 sqM); Albumin 4.7 g/dL (3.5-5.0); Alkaline Phosphatase 36 U/L (38-126); Amylase 120 U/L (30-110); Anion Gap 9 mmol/L; Blood Urea Nitrogen 18 mg/dL (7-17); Calcium 9.5 mg/dL (8.4-10.2); Carbon Dioxide 25 mmol/L (22-30); Chloride 104 mmol/L (98-107); Glucose 111 mg/dL (74-99); Lipase 47 U/L (23-300); Non-African American GFR(CKD) >90 (>60 ml/min/1.73 sqM); Phosphorus 4.4 mg/dL (2.5-4.5); Sodium 138 mmol/L (137-145); Total Bilirubin 0.8 mg/dL (0.2-1.3); Total Protein 8.5 g/dL (6.3-8.2)
--- NOTE | 2020-08-14 07:31 | CT ---
EXAMINATION TYPE: CT abdomen pelvis w con DATE OF EXAM: 08/14/2020 COMPARISON: 03/01/2018 INDICATION: Generalized abdominal pain with nausea and vomiting DLP: 998.9 mGycm, Automated exposure control for dose reduction was used. CONTRAST: 100 ml mL of Isovue 300. Study performed without Oral Contrast TECHNIQUE: Axial images were obtained from above the diaphragm to the pubic rami in the axial plane a t 5 mm thick sections. Reconstructed images are reviewed on the computer in the coronal plane. FINDINGS: Limited CT sections are obtained the lung bases. The lung bases are clear. CT ABDOMEN: Liver: Normal Spleen: Normal Pancreas: Normal Adrenal glands: The adrenal glands are normal. Gallbladder: Normal Kidneys: No masses are evident. No hydronephrosis is present. No cysts are present. Delayed images were obtained through the kidneys, which remain unremarkable. Aorta: Normal Inferior vena cava: Normal. CT PELVIS: There are fluid-filled somewhat prominent small bowel loops. Normal appearing colon with some fecal d ebris is present. Studies without oral contrast limiting bowel evaluation. Appendix: Not identified. No dilated tubular structure inflammatory changes evident. Urinary bladder: Normal. Genitourinary structures: Uterus appears normal. Adnexa appear within normal limits. Follicles may be present. Cyst on the right ovary may be present. Osseous structures: No suspicious lytic or sclerotic lesions. IMPRESSIONS: 1. Findings suggestive for ileus of uncertain etiology. No obstruction is evident. Consider gastroen teritis within the differential. 2. Small right ovarian cyst appears to be present.
[2020-08-14 07:52] VITALS: BP 106/82; PULSE 84
== END 2020-08-14 07:52 | disposition home or self-care (01) ==
LOC: EC 05:14
DX: R10.84 Generalized abdominal pain (principal); I10 Essential (primary) hypertension; Z79.899 Other long term (current) drug therapy; Z91.040 Latex allergy status; Z88.2 Allergy status to sulfonamides; Z88.1 Allergy status to other antibiotic agents; Z98.51 Tubal ligation status
CPT/HCPCS: 36415; 80053; 82150; 83605; 83690; 83735; 84100; 85025; 81001; 81025; 74177; 99284; 96360; 96361; Q9967

== ENCOUNTER → 2020-10-14 | Outpatient (CLI) | payer OTHER | END | disposition home or self-care (01) | LOC: LABWHC1 16:38 | PROVIDERS: ATTEND Family Medicine | DX: J34.89 Other specified disorders of nose and nasal sinuses (principal) | CPT/HCPCS: U0003; C9803 ==

== ENCOUNTER → 2022-04-07 | Outpatient (CLI) | payer OTHER ==
--- NOTE | 2022-04-07 13:00 | CT ---
EXAMINATION TYPE: CT brain wo con DATE OF EXAM: 04/07/2022 COMPARISON: None INDICATION: Headache and blurry vision DLP: 1121 mGycm, Automated exposure control for dose reduction was used. CONTRAST: None CT of the brain is performed utilizing 3 mm thick sections through the posterior fossa and 3 mm thick sections through the remaining calvarium. Study is performed within 24 hours of arrival to the hosp [facility]. No abnormal hyperdensity is present to suggest an acute intracranial hemorrhage. No mass lesion is evident. No acute infarcts are evident. Ventricles and sulci are appropriate for the patient age. Paranasal sinuses and mastoid air cells within the [id number] are clear. IMPRESSIONS: 1. No acute intracranial process. MRI can be performed as clinically indicated.
== END | disposition home or self-care (01) ==
LOC: RADCTMAIN 12:10
PROVIDERS: ATTEND Family Medicine
DX: H53.8 Other visual disturbances (principal); R51.9 Headache, unspecified
CPT/HCPCS: 70450

== ENCOUNTER → 2023-05-11 | Outpatient (CLI) | payer OTHER ==
--- NOTE | 2023-05-11 15:06 | US ---
EXAMINATION TYPE: US pelvis complete transvag DATE OF EXAM: 05/11/2023 COMPARISON: Pelvic ultrasound 07/31/2020 CLINICAL INDICATION: Female, 38 years old with history of N93.9 ABNORMAL UTERINE AND VAGINAL BLEEDING , UNSPE; Hx ablation x 6 years ago. Tubal ligation. Postcoital pain and bleeding x 5.5 years. TECHNIQUE: Transvaginal (TV) and Transabdominal (TA) . Transabdominal sonographic images of the pel vis were acquired. Transvaginal sonographic images were medically necessary to better assess the fol lowing anatomy: Endometrium, uterus Date of LMP: Unknown, EXAM MEASUREMENTS: Uterus: 8.1 x 4.7 x 5.6 cm Endometrial Stripe: 0.3 cm Right Ovary: 3.2 x 2.0 x 2.1 cm Left Ovary: 3.2 x 2.4 x 1.8 cm 1. Uterus: Anteverted Heterogenous. Bilateral fundal anechoic lesion, right = 0.8 cm and left = 0 .6 cm 2. Endometrium: limited visualization due to ablation history 3. Right Ovary: follicles seen 4. Left Ovary: follicles seen 5. Bilateral Adnexa: right adnexal tubal appearing lesion with internal echoes = 2.2 x 1.4 x 1.1 cm. Free fluid seen adjacent to left ovary 6. Posterior cul-de-sac: free fluid Heterogenous anteverted uterus with bilateral fundal myometrial cysts. Endometrium is poorly visualiz ed likely due to reported ablation. Both ovaries appear unremarkable with follicles demonstrated. Rig ht adnexal tube appearing lesion with internal echoes. Small amount of free fluid adjacent to the lef t ovary and in the posterior cul-de-sac. IMPRESSION: 1. Anteverted heterogeneous uterus with myometrial fundal cysts. Findings suggestive of adenomyosis. This could be further confirmed with MRI pelvis as clinically indicated. 2. Right adnexal tubal appearing lesion with internal echoes favored to represent a debris-filled hyd rosalpinx. Follow-up pelvic ultrasound in 6-12 weeks is recommended versus MRI pelvis. 3. Small amount of simple appearing free fluid in the left adnexa and posterior cul-de-sac.
== END | disposition home or self-care (01) ==
LOC: RADUSWWP 13:51
PROVIDERS: ATTEND Obstetrics & Gynecology
DX: N93.9 Abnormal uterine and vaginal bleeding, unspecified (principal); N93.0 Postcoital and contact bleeding; N85.8 Other specified noninflammatory disorders of uterus; Z98.51 Tubal ligation status
CPT/HCPCS: 76830; 76856

== ENCOUNTER → 2024-03-31 | Outpatient (CLI) | payer OTHER ==
--- NOTE | 2024-03-31 13:38 | MR ---
EXAMINATION TYPE: MR brain wo/w con DATE OF EXAM: 03/31/2024 1:29 PM CLINICAL INDICATION: Female, 38 years old with history of R51.9 HEADACHE, UNSPECIFIED; PHH, Headaches , lower back and right leg pain. COMPARISON: 03/30/2022 TECHNIQUE: Multi planar, multi sequence imaging was performed through the brain including: T1, T2, In version recovery, susceptibility weighted imaging and gradient echo imaging and Diffusion weighted im aging. The patient was then given intravenous contrast and multi planar, T1 fat-saturation images wer e obtained. IV Contrast: 8 cc Gadavist FINDINGS: The sanchez-white junctions, ventricular system, basal cisterns appear unremarkable. Diffusion-weighted imaging shows no evidence of restricted diffusion to suggest acute/subacute infarct. Intracranial ar terial flow voids are maintained. Midline structures show no abnormality. The susceptibility weighted images do not reveal any evidence for micro-hemorrhage. After administration of gadolinium, no abnor mal enhancement is seen. The bone marrow signal is within normal limits. Paranasal sinuses and mastoid air cells: No significant paranasal sinus disease. Visualized orbits: Orbital contents are intact. IMPRESSION: No evidence of intracranial mass, acute/subacute infarct, or abnormal enhancement. [facility], , 03/31/2024 1:36 PM
== END | disposition home or self-care (01) ==
LOC: RADMRIMAIN 12:39
PROVIDERS: ATTEND Family Medicine
DX: R51.9 Headache, unspecified (principal)
CPT/HCPCS: 70553